=== PATIENT | male | born 1995 | race Caucasian/White ===

== ENCOUNTER 2020-09-28 19:49 | Emergency (ER) | payer MEDICAID, OTHER ==
[~2020-09-28] VITALS: Ht 180.3 cm; Wt 68.9 kg
[2020-09-28 19:49] VITALS: BP 134/82
--- NOTE | 2020-09-28 19:49 | NUR ---
PT [facility] ALS. TAKEN TO BED 7
--- NOTE | 2020-09-28 19:52 | NUR ---
Dr. Saenz examining patient.
[2020-09-28] MEDS ORDERED: NACL 0.9% 1,000 ML IV SCH (19:55)
[2020-09-28] MEDS ORDERED: HALOPERIDOL IM 5 MG/ML VIAL IVP ONE (19:55)
--- NOTE | 2020-09-28 19:55 | NUR ---
BIBA C/O ABD PAIN 05/09, +N/V/D SINCE THIS MORNING. PT HOOKED TO MONITORS, VS STABLE PMH: GASTROPARESIS NKA
[2020-09-28] MEDS ORDERED: HALOPERIDOL IM 5 MG/ML VIAL IM ONE (20:15)
[2020-09-28] MEDS ORDERED: NACL 0.9% 1,000 ML IV ONE (20:15)
--- NOTE | 2020-09-28 20:18 | NUR ---
ekg performed at bedside. ekg reads sinus bradycardia @ 42
[2020-09-28 20:21] LABS: BASOPHILS % (AUTO) 0.2 % (0.0-2.0); HEMOGLOBIN 15.2 g/dL (12.0-18.0); LYMPHOCYTES # (AUTO) 0.9 K/uL (2.0-11.5); LYMPHOCYTES % (AUTO) 4.5 % (20.5-51.1); MEAN CORPUSCULAR HEMOGLOBIN 31 pg (27-31); MEAN CORPUSCULAR HGB CONC 34 g/dL (33-37); MEAN CORPUSCULAR VOLUME 90.7 fL (80-94); MONOCYTES # (AUTO) 1.2 K/uL (0.8-1.0); MONOCYTES % (AUTO) 5.7 % (1.7-9.3); NEUTROPHILS # (AUTO) 18.3 K/uL (1.8-7.7); NEUTROPHILS % (AUTO) 89.6 % (42.2-75.2); PLATELET COUNT (AUTO) 255 K/uL (140-450); RED BLOOD CELL COUNT(AUTO) 4.96 MIL/uL (4.20-6.10); RED CELL DISTRIBUTION WIDTH 12.8 % (11.6-13.7); WHITE BLOOD COUNT (AUTO) 20.4 K/uL (4.8-10.8)
--- NOTE | 2020-09-28 20:21 | NUR ---
X-Ray at bedside.
[2020-09-28 20:39] LABS: ALBUMIN 5.3 g/dL (3.4-5.0); ANION GAP 19.7 (8-16); CARBON DIOXIDE 21.1 mmol/L (21-32); POTASSIUM 3.8 mmol/L (3.5-5.1); TOTAL BILIRUBIN 1.1 mg/dL (0.0-1.0)
[2020-09-28] MEDS ORDERED: METOCLOPRAMIDE 10 MG/2 ML INJ VIAL IVP ONE (21:00)
[2020-09-28] MEDS ORDERED: MORPHINE SULFATE 4 MG/ML SYR IVP ONE (21:00)
--- NOTE | 2020-09-28 21:36 | NUR ---
PT TAKEN TO CT
--- NOTE | 2020-09-28 21:41 | NUR ---
Pt's mother Brittani called for update , informed that his nurse will call back w/ update when he is available. contact # [phone]
--- NOTE | 2020-09-28 21:56 | NUR ---
PT RETURN FROM CT
[2020-09-28 23:01] LABS: APPEARANCE,URINE CLEAR (CLEAR); BILIRUBIN,URINE NEGATIVE (NEGATIVE); BLOOD, URINE NEGATIVE (NEGATIVE); COLOR,URINE YELLOW (YELLOW); LEUKOCYTE ESTERASE ,URINE NEGATIVE (NEGATIVE); NITRITE, URINE NEGATIVE (NEGATIVE); UGLUCOSE NEGATIVE (NEGATIVE)
--- NOTE | 2020-09-28 23:55 | NUR ---
PO TEST PER MD. APPLE JUICE AND CRAKERS GIVEN. PT ABLE TO TOLERATE.
[2020-09-29] MEDS ORDERED: METOCLOPRAMIDE 10 MG/2 ML INJ VIAL IVP ONE (00:25)
[2020-09-29] MEDS ORDERED: CIPR500T4 PO (00:29)
[2020-09-29] MEDS ORDERED: METO-485 PO (00:29)
[2020-09-29] MEDS ORDERED: METR500T1 PO (00:29)
[2020-09-29 00:40] VITALS: BP 134/82
--- NOTE | 2020-09-29 00:40 | NUR ---
Patient discharged with v/s stable. Written and verbal after care instructions given and explained. Patient alert, oriented and verbalized understanding of instructions. Ambulatory with steady gait. All questions addressed prior to discharge. ID band removed. Patient advised to follow up with PMD. Rx of REGLAN, CIPROFLOXACIN, METRONIDAZOLE given. Patient educated on indication of medication including possible reaction and side effects. Opportunity to ask questions provided and answered.
== END 2020-09-29 00:40 | disposition home or self-care (01) ==
LOC: MED 19:49
DX: R11.10 Vomiting, unspecified (principal); R19.7 Diarrhea, unspecified; R10.9 Unspecified abdominal pain
CPT/HCPCS: 36415; 71045; 74177; 80053; 81003; 83690; 84484; 85025; 93005; 96361; 96372; 96374; 96375; 96376; 99285; J1630; J2270; J2765; J7030; Q9967

== ENCOUNTER 2021-02-22 15:11 | Emergency (ER) | payer OTHER, SELFPAY ==
[~2021-02-22] VITALS: Ht 180.3 cm; Wt 72.6 kg
[~2021-02-22 15:11] MED LIST: CIPR500T4 PO; METO-485 PO; METR500T1 PO
[2021-02-22 15:29] VITALS: BP 126/64
--- NOTE | 2021-02-22 16:07 | NUR ---
26/M FROM TRIAGE WITH A C/O ABDOMINAL PAIN AND N/V - PT ENDORSES MARIJUANA USE. PER PT PAIN HAS BEEN ONGOING X "A FEW MOS" BRADYCARDIC ON MONITOR. PENDING MSE.
--- NOTE | 2021-02-22 16:07 | NUR ---
PT WALKED TO BED 11 AT THIS TIME. ERMD AWARE AND AT BEDSIDE
--- NOTE | 2021-02-22 16:10 | NUR ---
DR MCGINNIS AT BEDSIDE, AWARE OF HEART RATE. ORDERS TO FOLLOW.
[2021-02-22] MEDS ORDERED: NACL 0.9% 1,000 ML IV SCH (16:15)
[2021-02-22] MEDS ORDERED: ONDANSETRON 4 MG/2 ML VIAL IVP ONE ×2 (16:15→21:25)
[2021-02-22] MEDS ORDERED: KETOROLAC 30 MG/ML VIAL IVP ONE (16:15)
[2021-02-22] MEDS ORDERED: HALOPERIDOL IM 5 MG/ML VIAL IVP ONE (16:40)
[2021-02-22] MEDS ORDERED: LORazepam 2 MG/ML VIAL IVP ONE (16:40)
[2021-02-22 16:53] LABS: BASOPHILS % (AUTO) 0.2 % (0.0-2.0); HEMATOCRIT 47.9 % (36-52); HEMOGLOBIN 16.1 g/dL (12.0-18.0); LYMPHOCYTES # (AUTO) 0.7 K/uL (2.0-11.5); MEAN CORPUSCULAR HEMOGLOBIN 31 pg (27-31); MEAN CORPUSCULAR HGB CONC 34 g/dL (33-37); MEAN CORPUSCULAR VOLUME 91.7 fL (80-94); MONOCYTES # (AUTO) 1.5 K/uL (0.8-1.0); MONOCYTES % (AUTO) 6.5 % (1.7-9.3); NEUTROPHILS # (AUTO) 21.5 K/uL (1.8-7.7); NEUTROPHILS % (AUTO) 90.3 % (42.2-75.2); PLATELET COUNT (AUTO) 281 K/uL (140-450); RED BLOOD CELL COUNT(AUTO) 5.22 MIL/uL (4.20-6.10); RED CELL DISTRIBUTION WIDTH 13.2 % (11.6-13.7); WHITE BLOOD COUNT (AUTO) 23.8 K/uL (4.8-10.8)
[2021-02-22 17:22] LABS: ALBUMIN 5.4 g/dL (3.4-5.0); ANION GAP 17.5 (8-16); CARBON DIOXIDE 24.3 mmol/L (21-32); POTASSIUM 3.8 mmol/L (3.5-5.1); TOTAL BILIRUBIN 1.1 mg/dL (0.0-1.0)
[2021-02-22] MEDS ORDERED: NACL 0.9% 2,000 ML IV ONE (17:30)
[2021-02-22] MEDS ORDERED: VANCOMYCIN 1,000 MG in DEXTROSE 5% 250 ML IV ONE (17:30)
[2021-02-22] MEDS ORDERED: PIPERACILLIN/TAZOBACTAM 3.375 GM in DEXTROSE 5% 50 ML IV ONE (17:30)
[2021-02-22] MEDS ORDERED: PIPERACILLIN/TAZOBACTAM 3.375 GM VIAL IV ONE (17:38)
[2021-02-22] MEDS ORDERED: VANCOMYCIN 1,000 MG VIAL ONE (19:07)
--- NOTE | 2021-02-22 19:28 | NUR ---
RECEIVED REPORT FROM GABRIEL ERICKSON FOR CONTINUITY OF CARE
--- NOTE | 2021-02-22 19:29 | NUR ---
Pt report given to JARETH RN. Transfer of care at this time.
[2021-02-22 20:00] VITALS: BP 112/49
[2021-02-22] MEDS ORDERED: NACL 0.9% 1,000 ML IV ONE ×2 (20:20→21:50)
[2021-02-22] MEDS ORDERED: PROCHLORPERAZINE 10 MG/2 ML VIAL IVP ONE (20:20)
--- NOTE | 2021-02-22 20:39 | NUR ---
patient in pain, position. ERMD made aware.
--- NOTE | 2021-02-22 21:02 | NUR ---
Patient family keep coming out of the room with agitation. patient in pain, position, vomiting. ERMD made aware.
[2021-02-22] MEDS ORDERED: DEXT 5% /NACL 0.9% 1,000 ML IV SCH (21:30)
[2021-02-22] MEDS ORDERED: ACETAMINOPHEN 325 MG TAB PO PRN (21:30)
[2021-02-22] MEDS ORDERED: ZOLPIDEM 5 MG TAB PO PRN (21:30)
[2021-02-22] MEDS ORDERED: ONDANSETRON 4 MG/2 ML VIAL IM/IVP PRN (21:30)
[2021-02-22] MEDS ORDERED: METOCLOPRAMIDE 10 MG TAB PO PRN (21:30)
[2021-02-22] MEDS ORDERED: guaiFENesin DM 200/20 MG-10 ML 10 ML UDC PO PRN (21:30)
[2021-02-22] MEDS ORDERED: POTASSIUM CHLORIDE 10 MEQ TABER PO PRN (21:30)
[2021-02-22] MEDS ORDERED: DOCUSATE SODIUM 100 MG GELCAP PO PRN (21:30)
[2021-02-22] MEDS ORDERED: HYDROcodone/APAP 7.5/325 MG 1 TAB PO PRN (21:30)
--- NOTE | 2021-02-22 21:30 | NUR ---
Patient family keep coming out of the room regarding patient. patient in pain, position. ERMD made aware.
--- NOTE | 2021-02-22 22:30 | NUR ---
IV removed, catheter intact and site benign. Applied folded 4x4 gauze and tape to stop bleeding.
--- NOTE | 2021-02-22 22:35 | NUR ---
Patient does not wish to proceed with medical care recommended by Fred PIEDRA. Patient given information related to possible complications, up to and including , which could occur as a result of leaving hospital at this time. Patient verbalizes understanding of risks involved leaving against medical advice. Patient has signed AMA form.
[2021-02-22 23:04] LABS: CHOL/HDL RATIO 4.5 (1-4.5); FREE T4 (FREE THYROXINE) 0.98 ng/dL (0.76-1.46); MAGNESIUM 1.8 mg/dL (1.8-2.4); PHOSPHORUS 2.5 mg/dL (2.5-4.9); THYROID STIMULATING HORMONE 1.01 uIU/mL (0.34-3.74)
[2021-02-23] MEDS ORDERED: PIPERACILLIN/TAZOBACTAM 3.375 GM in DEXTROSE 5% 50 ML IV SCH (05:00)
[2021-02-23] MEDS ORDERED: PANTOPRAZOLE 40 MG TABEC PO SCH (09:00)
[2021-02-24 07:07] LABS: T4 (THYROXINE) 8.2 ug/dL (4.5-12.0)
--- NOTE | 2021-02-27 20:16 | NUR ---
LATE ENTRY- VANCOMYCIN IVPB DISCONTINUED AT 2100 AND 0.9% NS DISCONTINUED AT 2200
== END 2021-02-22 22:35 | disposition left against medical advice (07) ==
LOC: MED 15:11 → UNDOADMIN 21:49 → MTU 21:49 → UNDODISIN 22:35
DX: A41.9 Sepsis, unspecified organism (principal); Z20.822 Contact with and (suspected) exposure to COVID-19; R10.84 Generalized abdominal pain; R11.2 Nausea with vomiting, unspecified; F12.90 Cannabis use, unspecified, uncomplicated; Z79.899 Other long term (current) drug therapy
CPT/HCPCS: 36415; 71045; 74177; 80053; 80061; 82150; 83036; 83605; 83690; 83735; 83880; 84100; 84436; 84439; 84443; 84479; 84484; 85025; 87426; 93005; 96361; 96365; 96366; 96367; 96375; 96376; 99291; J0780; J1630; J1885; J2060; J2405; J2543; J3370; J7030; Q9967; J7060

== ENCOUNTER 2021-06-19 16:28 | Emergency (ER) | payer OTHER, SELFPAY ==
[~2021-06-19] VITALS: Ht 180.3 cm; Wt 76.7 kg
[2021-06-19 16:32] VITALS: BP 135/77
[2021-06-19] MEDS ORDERED: BACITRACIN OINT 500 UNITS/GM PKT TP ONE ×2 (17:06→17:10)
[2021-06-19] MEDS ORDERED: AMOX-1000 PO ×2 (17:38→18:44)
[2021-06-19] MEDS ORDERED: NAPR-54 PO ×2 (17:38→18:44)
[2021-06-19] MEDS ORDERED: BACI1PAC6 TP ×2 (17:42→18:44)
[2021-06-19 17:43] VITALS: BP 135/77
== END 2021-06-19 17:43 | disposition home or self-care (01) ==
LOC: MED 16:28
DX: S51.851A Open bite of right forearm, initial encounter (principal); S61.451A Open bite of right hand, initial encounter; Z79.2 Long term (current) use of antibiotics; Z79.1 Long term (current) use of non-steroidal anti-inflammatories (NSAID); Z79.899 Other long term (current) drug therapy; W54.0XXA Bitten by dog, initial encounter; Y93.89 Activity, other specified; Y92.89 Other specified places as the place of occurrence of the external cause; Y99.8 Other external cause status
CPT/HCPCS: 73090; 99283; Q0092